=== PATIENT | female | born 1970 | race Caucasian/White ===

== ENCOUNTER 2016-09-21 21:08 | Emergency (ER) | payer SELFPAY ==
[~2016-09-21] VITALS: Ht 157.5 cm; Wt 118.0 kg
[2016-09-21 21:09] VITALS: BP 141/92; PULSE 73; RESP 18; TEMP 98.8; O2SAT 97
[2016-09-21] MEDS ORDERED: SODIUM CHLOR 0.9% 1000 ML INJ 1,000 ML IV ONE (21:42)
[2016-09-21] MEDS ORDERED: DIAZ10 PO (21:43)
[2016-09-21] MEDS ORDERED: VENL75TA PO (21:43)
[2016-09-21] MEDS ORDERED: SODIUM CHLORIDE 0.9% FLUSH 10 ML FLUSH IVF PRN (21:45)
[2016-09-21] MEDS ORDERED: KETOROLAC TROMETHAMINE 30 MG/ML (IVP) VIAL IVP ONE (21:45)
[2016-09-21] MEDS ORDERED: ONDANSETRON HCL 4 MG/2 ML VIAL IVP ONE (21:45)
--- NOTE | 2016-09-21 21:49 | PD ---
HPI Chief Complaint: Flank/Kidney Pain Time Seen by Provider: 21:42 Travel History International Travel<30 days: No Contact w/Intl Traveler<30days: No Traveled to known affect area: No History of Present Illness HPI 46-year-old female who is visiting from out of town and due to leave tomorrow with 18th episode of kidney stone like pain. She states she's had to have for CAT scans before but they have all passed on their own. She states that given she started throwing up and cannot get her pain under control she elected to come here. Quality is sharp. Severity is severe. This feels similar to prior kidney stone. Duration couple of days. PFSH Past Medical History Anxiety: Yes Diabetes: No Patient Takes Glucophage: No Diminished Hearing: No Genitourinary: Yes Kidney Stones: Yes ([id number]) Psychiatric: Yes Immunizations Current: Yes Tetanus Vaccination: Unknown Influenza Vaccination: No ?: Unknown LMP: 09/07/16 : 1 Para: 1 Past Surgical History Surgical History: No Previous Surgery Social History Alcohol Use: Yes (OCCASIONAL) Tobacco Use: No Substance Use: No Allergies-Medications (Allergen,Severity, Reaction): Coded Allergies: Penicillin (Verified Allergy, Severe, Hives, 09/21/16) Sulfa (Verified Allergy, Severe, Hives, 09/21/16) Codeine (Verified Adverse Reaction, Severe, Hallucinations, 09/21/16) Reported Meds & Prescriptions Reported Meds & Active Scripts Active Lortab (Hydrocodone-Acetaminophen) 5-325 Mg Tab 1 Tab PO Q6H PRN Reported Valium (Diazepam) 10 Mg Tab 10 Mg PO BID PRN Effexor (Venlafaxine HCl) 75 Mg Tab 75 Mg PO DAILY Review of Systems Except as stated in HPI: all other systems reviewed are Neg Physical Exam Narrative GENERAL: Well-nourished, well-developed patient. SKIN: Warm and dry. HEAD: Normocephalic and atraumatic. EYES: No injection or drainage. ENT: No nasal drainage noted. NECK: Supple, trachea midline. CARDIOVASCULAR: Regular rate and rhythm RESPIRATORY: No increased effort. No accessory muscle use. GASTROINTESTINAL: Abdomen soft, diffusely tender, nondistended. EXTREMITIES: No edema. NEUROLOGICAL: Awake and alert. Motor and sensory grossly within normal limits. Normal speech. Data Data Last Documented VS Vital Signs Date Time Temp Pulse Resp B/P Pulse Ox O2 Delivery O2 Flow Rate FiO2 09/21/16 23:46 63 16 117/56 97 Room Air 09/21/16 21:09 98.8 Orders Complete Blood Count With Diff (09/21/16 21:42) Basic Metabolic Panel (Bmp) (09/21/16 21:42) Urinalysis - C+S If Indicated (09/21/16 21:42) Ct Abd/Pel W/O Iv Contrast (09/21/16 21:42) Ecg Monitoring (09/21/16 21:42) Iv Access Insert/Monitor (09/21/16 21:42) Ketorolac Inj (Toradol Inj) (09/21/16 21:45) Ondansetron Inj (Zofran Inj) (09/21/16 21:45) Sodium Chloride 0.9% Flush (Ns Flush) (09/21/16 21:45) Sodium Chlor 0.9% 1000 Ml Inj (Ns 1000 M (09/21/16 21:42) Ed Urine Pregnancytest Poc (09/21/16 21:42) Labs Laboratory Tests Test 09/21/16 21:48 White Blood Count 10.9 TH/MM3 Red Blood Count 4.26 MIL/MM3 Hemoglobin 13.3 GM/DL Hematocrit 39.3 % Mean Corpuscular Volume 92.3 FL Mean Corpuscular Hemoglobin 31.2 PG Mean Corpuscular Hemoglobin 33.8 % Concent Red Cell Distribution Width 13.8 % Platelet Count 233 TH/MM3 Mean Platelet Volume 8.9 FL Neutrophils (%) (Auto) 64.1 % Lymphocytes (%) (Auto) 25.8 % Monocytes (%) (Auto) 6.8 % Eosinophils (%) (Auto) 2.5 % Basophils (%) (Auto) 0.8 % Neutrophils # (Auto) 7.0 TH/MM3 Lymphocytes # (Auto) 2.8 TH/MM3 Monocytes # (Auto) 0.7 TH/MM3 Eosinophils # (Auto) 0.3 TH/MM3 Basophils # (Auto) 0.1 TH/MM3 CBC Comment DIFF FINAL Differential Comment Urine Color YELLOW Urine Turbidity HAZY Urine pH 5.5 Urine Specific [place] 1.023 Urine Protein TRACE mg/dL Urine Glucose (UA) NEG mg/dL Urine Ketones NEG mg/dL Urine Occult Blood MOD Urine Nitrite NEG Urine Bilirubin NEG Urine Urobilinogen LESS THAN 2.0 MG/DL Urine Leukocyte Esterase TRACE Urine RBC 33 /hpf Urine WBC 3 /hpf Urine Squamous Epithelial 2 /hpf Cells Urine Bacteria RARE /hpf Urine Mucus FEW /lpf Microscopic Urinalysis Comment CULT NOT INDICATED Sodium Level 138 MEQ/L Potassium Level 3.9 MEQ/L Chloride Level 103 MEQ/L Carbon Dioxide Level 25.8 MEQ/L Anion Gap 9 MEQ/L Blood Urea Nitrogen 23 MG/DL Creatinine 1.07 MG/DL Estimat Glomerular Filtration 55 ML/MIN Rate Random Glucose 104 MG/DL Calcium Level 9.3 MG/DL MDM Medical Decision Making Medical Screen Exam Complete: Yes Emergency Medical Condition: Yes Medical Record Reviewed: Yes (past history confirmed) Interpretation(s) CBC & BMP Diagram 09/21/16 21:48 Last 24 hours Impressions Abdomen/Pelvis CT 09/21/162141 Signed Impressions: Service Date/Time: Wednesday, September 21, 2016 22:30 - CONCLUSION: Moderate hydronephrosis in the right kidney due to an approximate 5 mm distal ureteral stone. Coretta Iglesias MD ua with blood no uti Differential Diagnosis Kidney stone, UTI, musculoskeletal, gastritis, diverticulitis, cyst, Narrative Course Will check blood work, urinalysis, CT scan and dose with IV fluids, Zofran, Toradol. Advised to limit overall radiation exposure ed workup with right distal ureteral stone with hydronephrosis without infection or renal failure. Offered patient observation and she prefers to go home, will provide with Lortab when I discussed pain control options at home and this is what she was requesting,Patient denies any new complaints and states that they are feeling better. Patient happy with care, all questions answered. Patient knows that follow up is incumbent on them and to return to the emergency room immediately if new or worsening symptoms develop. Patient given strict return precautions, vitals reviewed and are normal, agrees to further workup as an outpatient. no emesis here Diagnosis Primary Impression: Right ureteral calculus Additional Impression: Hydronephrosis Qualified Code: N13.30 - Hydronephrosis, unspecified hydronephrosis type Patient Instructions: General Instructions Additional Instructions: return as needed, follow with urology tommorrow, lortab as needed for severe pain Med/Other Pt SpecificInfo: Prescription(s) given Scripts Hydrocodone-Acetaminophen (Lortab)5-325 Mg Tab1 Tab PO Q6H PRN (PAIN) #15 TAB Ref 0 Prov:Maricarmen Sims MD 09/22/16 Disposition: 01 DISCHARGE HOME Condition: Stable Maricarmen Sims MD September 21, 2016 21:49
[2016-09-21 22:09] LABS: BASOPHIL # 0.1 TH/MM3 (0-0.2); BASOPHIL % 0.8 % (0.0-2.0); EOSINOPHIL # 0.3 TH/MM3 (0-0.4); EOSINOPHIL % 2.5 % (0.0-4.0); HEMATOCRIT 39.3 % (35.0-46.0); HEMO FLAGS DIFF FINAL; LYMPH % 25.8 % (9.0-44.0); LYMPHOCYTE # 2.8 TH/MM3 (1.0-4.8); MEAN CELL VOLUME 92.3 FL (80.0-100.0); MEAN CORPUSCULAR HEMOGLOBIN 31.2 PG (27.0-34.0); MEAN CORPUSCULAR HGB CONC 33.8 % (32.0-36.0); MONO % 6.8 % (0.0-8.0); NEUT % 64.1 % (16.0-70.0); PLATELET COUNT 233 TH/MM3 (150-450); RED BLOOD COUNT 4.26 MIL/MM3 (4.00-5.30); RED CELL DISTRIBUTION WIDTH 13.8 % (11.6-17.2); WHITE BLOOD COUNT 10.9 TH/MM3 (4.0-11.0)
[2016-09-21 22:14] LABS: BACTERIA, URINE RARE /hpf; BLOOD, URINE MOD (NEG); COMMENT (UR) CULT NOT INDICATED; CULTURE IF INDICATED CULT NOT INDICATED; GLUCOSE,URINE NEG (NEG); KETONE, URINE NEG (NEG); MUCUS URINE FEW /lpf (OCC); NITRITE,URINE NEG (NEG); PH, URINE 5.5 (5.0-8.5); SQUAMOUS EPITHELIAL CELL URINE 2 /hpf (0-5); URINE COLOR YELLOW (YELLW/STRAW)
[2016-09-21 22:17] VITALS: BP 112/58; PULSE 66; RESP 16; O2SAT 97
[2016-09-21 22:30] LABS: BICARBONATE 25.8 MEQ/L (21.0-32.0); POTASSIUM 3.9 MEQ/L (3.5-5.1)
--- NOTE | 2016-09-21 23:10 | RADRPT ---
EXAM DATE/TIME: 09/21/2016 22:30 [facility] COMPARISON: No previous studies available for comparison. INDICATIONS : Right flank pain radiating to front. ORAL CONTRAST: No oral contrast ingested. RADIATION DOSE: 17.81 CTDIvol (mGy) MEDICAL HISTORY : Cardiovascular disease. CVA. SURGICAL HISTORY : Hysterectomy. Tubal ligation. ENCOUNTER: Initial ACUITY: 1 day PAIN SCALE: 6/10 LOCATION: Right flank TECHNIQUE: Volumetric scanning of the abdomen and pelvis was performed. Using automated exposure control and adjustment of the mA and/or kV according to patient size, radiation dose was kept as low as reasonably achievable to obtain optimal diagnostic quality images. FINDINGS: CT Abdomen: The liver, spleen, pancreas, left kidney, adrenals are unremarkable. There is no evidence for any appreciable pathological adenopathy, free fluid, or bowel obstruction. There are a couple of tiny 1-2 mm stones in the right kidney. There is moderate hydronephrosis in the right kidney due to an approximate 5 mm distal ureteral stone. CT pelvis: There is no evidence for mass, abscess formation, or any significant adenopathy within the pelvis. CONCLUSION: Moderate hydronephrosis in the right kidney due to an approximate 5 mm distal uretera l stone. Coretta Iglesias MD on September 21, 2016 at 23:04 Board Certified Radiologist. This report was verified electronically.
[2016-09-21 23:46] VITALS: BP 117/56; PULSE 63; RESP 16; O2SAT 97
[2016-09-22] MEDS ORDERED: HYDR-3533 PO (00:58)
== END 2016-09-22 01:09 | disposition home or self-care (01) ==
LOC: NEPC 21:08
DX: N20.1 Calculus of ureter (principal); N13.30 Unspecified hydronephrosis; R11.10 Vomiting, unspecified; Z86.59 Personal history of other mental and behavioral disorders; Z87.448 Personal history of other diseases of urinary system
CPT/HCPCS: 74176; 80048; 81001; 84703; 85025; 96361; 96374; 96375; 99284; J1885; J2405; J7030